=== PATIENT | male | born 1970 | race Caucasian/White ===

== ENCOUNTER 2016-10-29 21:21 | Inpatient (IN) | payer OTHER ==
[~2016-10-29] VITALS: Ht 182.9 cm; Wt 85.0 kg
[2016-10-29 21:26] VITALS: Ht 182.9 cm; Wt 85.0 kg
[2016-10-29] MEDS ORDERED: SOD CHLORIDE 0.9% 2,000 ML IV STA (21:29)
[2016-10-29] MEDS ORDERED: LACTATED RINGER'S 1,000 ML IV STA ×2 (21:29→22:17)
[2016-10-29 21:46] LABS: ADD SCAN DIFF NO
[2016-10-29 21:49] LABS: ABNORMAL IP MESSAGE 1; HEMOGLOBIN 12.9 g/dl (14.0-18.0); MEAN CORPUSCULAR HEMOGLOBIN 33.6 pg (29.0-33.0); MEAN CORPUSCULAR HGB CONC 32.3 g/dl (32.0-37.0); MEAN CORPUSCULAR VOLUME 104.2 fl (82.0-101.0); MEAN PLATELET VOLUME 10.7 fl (7.4-10.4); PLATELET COUNT 243 10^3/UL (140-415); RED BLOOD COUNT 3.84 10^6/ul (4.70-6.10); RED CELL DISTRIBUTION WIDTH 11.9 % (11.5-14.5); WHITE BLOOD COUNT 24.2 10^3/ul (4.8-10.8)
[2016-10-29 21:55] LABS: CHLORIDE 74 mmol/L (97-110); SODIUM 121 mmol/L (135-144)
[2016-10-29] MEDS ORDERED: INSULIN HUMAN REGULAR 100 UNIT in SOD CHLORIDE 0.9% 99 ML IV STA (21:56)
[2016-10-29 21:58] LABS: CREATININE 4.21 mg/dl (0.61-1.24)
[2016-10-29 21:59] LABS: BLOOD UREA NITROGEN 36 mg/dl (7-20); CALCIUM 8.2 mg/dl (8.4-10.2)
[2016-10-29 22:05] LABS: ANION GAP 50 (8-16)
[2016-10-29 22:08] LABS: GLUCOSE 1148 mg/dl (70-220)
[2016-10-29 22:09] LABS: CARBON DIOXIDE < 5 mmol/L (21-31); POTASSIUM 7.9 mmol/L (3.5-5.1)
[2016-10-29] MEDS ORDERED: CA CHLORIDE 10% 10 ML SYRINGE IV STA (22:09)
[2016-10-29 22:11] LABS: AADO2 Arterial 20.9 mmHg (7.0-24.0); Allen Test ACCEPTAB; Arterial Base Excess -26.1 mmol/L (-3.0-3); Arterial COHb 0.3 % (0.0-3.0); Arterial Fraction of Oxyhgb 96.7 % (93.0-99.0); Arterial HCO3 3.3 mmol/L (22.0-26.0); Arterial MetHb 0.4 % (0.0-1.5); Arterial Total Hemglobin 13.2 g/dl (12.0-18.0); MODE ROOM AIR
[2016-10-29] MEDS ORDERED: ALBUTEROL 0.5% (NEB) 2.5 MG/0.5 ML AMP INH STA (22:15)
[2016-10-29] MEDS ORDERED: SOD CHLORIDE 0.9% 1,000 ML IV STA ×2 (22:17)
[2016-10-29 22:37] LABS: LYMPHOCYTES # 1.2 10^3/ul (0.8-2.9); MONOCYTE # 3.4 10^3/ul (0.3-0.9); NEUTROPHIL # 18.9 10^3/ul (1.6-7.5)
--- NOTE | 2016-10-29 22:41 | ERA ---
ER Documentation Chief Complaint Date/Time DATE: 10/29/16 TIME: 22:40 Chief Complaint bib ra 90 c/o "diabetic symptoms" nonspecified, accu check "HI" per EMS HPI Patient is a 46-year-old male with diabetes who presents altered. The patient was brought in by ambulance. He uses insulin and his last use was 3 PM. He was started vomiting yesterday and has not eaten anything yesterday or today per his mom who is here with him. Please note the history and physical exam is limited secondary to the patient's mental status. ROS All systems reviewed and are negative except as per history of present illness. Allergies Allergies: Coded Allergies: No Known Allergy (Unverified , 10/29/16) PMhx/Soc Diabetes FmHx Unable to obtain Physical Exam Vitals Vital Signs Date Time Temp Pulse Resp B/P Pulse Ox O2 Delivery O2 Flow Rate FiO2 10/29/16 22:25 125 30 100 21 10/29/16 22:09 126 30 91/56 100 Room Air 10/29/16 21:26 98.0 132 21 99/61 100 Physical Exam Const: Kussmaul's respirations Head: Atraumatic Eyes: Normal Conjunctiva ENT: Dry mucous membranes Neck: Full range of motion..~ No meningismus. Resp: Kussmaul's respirations Cardio: Tachycardic rate Abd: Soft, non tender, non distended. Normal bowel sounds Skin: No petechiae or rashes Back: No midline or flank tenderness Ext: No cyanosis, or edema Neur: Awake but confused Result Diagram: 10/29/16213810/29/162138 Results 24 hrs Laboratory Tests Test 10/29/16 21:32 10/29/16 21:39 10/29/16 21:55 10/29/16 22:23 Bedside Glucose > 595mg/dL > 595mg/dL White Blood Count 24.210^3/ul Red Blood Count 3.8410^6/ul Hemoglobin 12.9g/dl Hematocrit 40.0% Mean Corpuscular Volume 104.2fl Mean Corpuscular Hemoglobin 33.6pg Mean Corpuscular Hemoglobin Concent 32.3g/dl Red Cell Distribution Width 11.9% Platelet Count 99800^3/UL Mean Platelet Volume 10.7fl Neutrophils % 78.0% Band Neutrophils % 3.0% Lymphocytes % 5.0% Monocytes % 14.0% Neutrophils # 18.910^3/ul Lymphocytes # 1.210^3/ul Monocytes # 3.410^3/ul Sodium Level 121mmol/L Potassium Level 7.9mmol/L Chloride Level 74mmol/L Carbon Dioxide Level < 5mmol/L Anion Gap 50 Blood Urea Nitrogen 36mg/dl Creatinine 4.21mg/dl Glucose Level 1148mg/dl Lactic Acid Level < 0.5mmol/L Calcium Level 8.2mg/dl Blood Gas Specimen Source Blood arterial Arterial Blood Date Drawn 10/29/2016 10:00:52 PM Arterial Blood pH (Temp corrected) 7.007 Arterial Blood pCO2 (Temp correct) 13.3mmhg Arterial Blood pO2 (Temp corrected) 112.9mmHG Arterial Blood HCO3 3.3mmol/L Arterial Blood Base Excess -26.1mmol/L Arterial Blood Oxygen Saturation 97.4mmHG Uziel Test ACCEPTAB Arterial Blood Gas Puncture Site Right Radial Arterial Blood Carboxyhemoglobin 0.3% Arterial Blood Methemoglobin 0.4% Blood Gas A-a O2 Differential 20.9mmHg Oxyhemoglobin Percent 96.7% Total Hemoglobin 13.2g/dl Blood Gas Temperature 37.0C Blood Gas Modality ROOM AIR FiO2 21.0% Blood Gas Critical Value Read Back shyla foster Blood Gas Notified Whom tiffanie eliazar Blood Gas Notified Time 10/29/2016 10:11:27 PM Current Medications Medications (Trade) Dose Ordered Sig/Coleen Route PRN Reason Start Time Stop Time Status Last Admin Dose Admin Sodium Chloride 2,000 ml @ 1,000 mls/hr Q2H STAT IV 10/29/16 21:29 10/29/16 23:28 10/29/16 21:45 Lactated Ringer's 1,000 ml @ 1,000 mls/hr Q1H STAT IV 10/29/16 21:29 10/29/16 22:28 DC 10/29/16 21:51 Insulin Human Regular/Sodium Chloride (Novolin-R/NS) 100 ml @ 8 mls/hr [id number] STAT IV 10/29/16 21:56 10/30/16 10:25 10/29/16 22:35 Calcium Chloride (Ca Chloride 10% Syg) 1,000 mg ONCE STAT IV 10/29/16 22:09 10/29/16 22:11 DC 10/29/16 22:13 Albuterol 15 mg 15 mg ONCE STAT INH 10/29/16 22:15 10/29/16 22:16 DC 10/29/16 22:24 Sodium Chloride 1,000 ml @ 1,000 mls/hr Q1H STAT IV 10/29/16 22:17 10/29/16 23:16 Sodium Chloride 1,000 ml @ 1,000 mls/hr Q1H STAT IV 10/29/16 22:17 10/29/16 23:16 Lactated Ringer's (Lr) 1,000 ml @ 1,000 mls/hr Q1H STAT IV 10/29/16 22:17 10/29/16 23:16 Procedures/MDM EKG read by me: Rate/Rhythm: Sinus tachycardia Intervals: Widening QRS Impression: Sinus tachycardia with widened QRS and peaked T waves consistent with hyperkalemia Patient is a 46-year-old male with diabetes who presents with Kussmaul's respirations. EKG showed a widening QRS and peak T waves and I was concerned about hyperkalemia from diabetic ketoacidosis. The patient was started on 2 L of normal saline 1 L of lactated Ringer's for fluid resuscitation. The patient had an elevated white blood cell count 24.2 which is likely from acute diabetic ketoacidosis and not true sepsis. Lactic acid is normal. The patient had an elevated sugar of 1148 as well as acute renal failure with a creatinine of 4.21. Doubt patient had a bicarbonate of less than 5 and a potassium of 7.9 showing acute hyperkalemia. The patient was started on insulin drip at 8 U/h. I ordered 2 more units of normal saline and 1 more unit of lactated Ringer's for a total of 6 L of fluid resuscitation. The patient is critically ill and will need admission to the intensive care unit. The patient has never been here before. I spoke with Dr. Potter from the panel team for admission to the ICU. The patient was given 1 g of calcium chloride to prevent cardiac arrest and was also given albuterol 15 mg for hyperkalemia. Critical Care: Time: 45 minutes excluding all billable procedures. Treatments/Evaluations: Close monitoring and treatment of unstable vital signs, cardiorespiratory, and neurologic status, while maintaining tight balance of fluid, respiratory, and cardiac interventions. Departure Diagnosis: Primary Impression: Hyperkalemia Additional Impressions: Kussmauls breathing Acidosis DKA (diabetic ketoacidoses) Qualified Code: E10.11 - Diabetic ketoacidosis with coma associated with type 1 diabetes mellitus Hyperglycemia Anemia Qualified Code: D64.9 - Anemia, unspecified type Acute renal failure Qualified Code: N17.9 - Acute renal failure, unspecified acute renal failure type Condition: Critical CARMEN RAMIREZ MD Oct 29, 2016 22:41
[2016-10-29] MEDS ORDERED: LORAZEPAM 2 MG INJ IV PRN (23:30)
[2016-10-29] MEDS ORDERED: ACETAMINOPHEN 650MG/20.3ML CUP PO PRN (23:30)
[2016-10-29] MEDS ORDERED: morphine 2 MG INJ IV PRN (23:30)
[2016-10-29] MEDS ORDERED: ONDANSETRON 4 MG INJ IV PRN (23:30)
[2016-10-29] MEDS ORDERED: DEXTROSE 50% 50 ML SYRINGE IV PRN ×2 (23:30)
[2016-10-30] VITALS (10 sets, daily range): BP systolic 98–122; BP diastolic 63–78; PULSE 110–120; RESP 12–28; TEMP 98.1
[2016-10-30 00:03] LABS: ADD UMIC YES; URINE BILIRUBIN (Dip) 2+ (NEGATIVE); URINE BLOOD (Dip) 2+ (NEGATIVE); URINE COLOR LT. YELLOW (YELLOW); URINE GLUCOSE (Dip) >=1000 % (NEGATIVE); URINE KETONES (Dip) 3+ (NEGATIVE); URINE LEUKOCYTE ESTERASE (Dip) NEGATIVE (NEGATIVE); URINE NITRITE (Dip) NEGATIVE (NEGATIVE); URINE TOTAL PROTEIN (Dip) 1+ (NEGATIVE); URINE UROBILINOGEN (Dip) 0.2 E.U./dL (0.1-1.0)
--- NOTE | 2016-10-30 00:07 | RADRPT ---
PROCEDURE: XR Chest. CLINICAL INDICATION: Chest pain. TECHNIQUE: Single frontal chest x-ray. COMPARISON: None. FINDINGS: The cardiomediastinal silhouette is unremarkable. The lungs are clear. No focal infiltrate is seen. There is no pleural effusion. There is no pneumothorax. The osseous structures are unremarkable. IMPRESSION: 1. No active disease. RPTAT: [facility]VK .Maximilian Calloway MD, MD Date Time Electronically viewed and signed by .Maximilian Calloway MD, on 10/30/2016 00:06 .K/
[2016-10-30 00:16] LABS: ICTOTEST POSITIVE (NEGATIVE)
[2016-10-30 00:19] LABS: BACTERIA,URINE FEW; MUCUS,URINE FEW; SQUAMOUS EPITHELIAL CELL,UR MODERATE
[2016-10-30] MEDS: ACCU-CHEK XX SCH ×11 (00:27→19:48)
--- NOTE | 2016-10-30 02:53 | HP ---
Date/Time of Note Date/Time of Note DATE: 10/30/16 TIME: 02:28 Assessment/Plan VTE Prophylaxis VTE Prophylaxis Intervention: heparin Assessment/Plan Assessment/Plan 1. Severe DKA - Cont Insulin with DKA protocol - IVF - Correct electrolytes as needed - Empiric abx pending cultures - Endocrine consult - Will check A1C in am 2. Presumed FRANCOIS - cont IVF - Obtain Renal u/s - check urine electrolytes - Nephrology consult 3. Severe AG metabolic Acidosis - see above 4. Electrolyte Abnormalities, including severe hyperK and HypoNa - Improved after IVF and insulin - Nephrology and Endocrine consult 5. SIRS, with no identifiable source of infection - empiric abx - f/u blood and urine culture results HPI/ROS Admit Date/Time Admit Date/Time Hx of Present Illness Patient is a 46-year-old male with hx of Type I diabetes who was BIBA for altered mentation. The patient is currently unable to give history and s such information is gathered from chart review and ER physician. Per his mother who was in ER, pt started vomiting yesterday and has not eaten anything yesterday or today. ER Course: He was tachycardic with rate as high as in 150s. Blood glucose 1148. reportedly, he last used insulin around 3PM. His K+ 7.9, HCO3 was < 5 with Ph of 7, AG 50, Na 121, Cl 74, BUN 36, Cr 4.3, WBC 24K. UA showed 3+ ketones and CXR with no active disease. Pt has been started on DKA protocol and is awaiting an ICU admission. . PMH/Family/Social Past Medical History Medical History: diabetes Past Surgical History Past Surgical Hx: no surgical history Social History Alcohol Use: none Smoking Status: Never smoker Drug Use: none Exam/Review of Systems Vital Signs Vitals Vital Signs Date Time Temp Pulse Resp B/P Pulse Ox O2 Delivery O2 Flow Rate FiO2 10/30/16 00:37 98.1 10/30/16 00:15 124 20 128/99 100 Nasal Cannula 2.0 10/29/16 22:25 21 Intake and Output 10/29/16 10/29/16 10/30/16 15:00 23:00 07:00 Intake Total 2000 ml 3000 ml Output Total 350 ml Balance 2000 ml 2650 ml Exam Constitutional: other (confused, lethargic) Head: atraumatic, normocephalic Eyes: PERRL Respiratory: clear to auscultation, other (breathing fast) Cardiovascular: other (tachycardic with regular rhythm) Gastrointestinal: non-tender, soft Extremities: normal pulses Labs Result Diagram: 10/29/16213810/29/162138 Medications Medications Current Medications Ondansetron HCl (Zofran Inj) 4 mg Q6H PRN IV NAUSEA AND/OR VOMITING; Start 06/06 at 23:30 Acetaminophen (Tylenol Liquid) 650 mg Q6H PRN PO PAIN LEVEL 1-3 OR FEVER; Start 10/29/16 at 23:30 Morphine Sulfate (morphine) 2 mg Q4H PRN IV PAIN LEVEL 7-10; Start 10/29/16 at 23:30 Lorazepam (Ativan) 1 mg Q4H PRN IV ANXIETY; Start 10/29/16 at 23:30 Pantoprazole (Protonix Iv) 40 mg DAILY@06 IV ; Start 10/30/16 at 06:00 Heparin Sodium (Porcine) (Heparin (5000 Units/0.5 ml)) 5,000 unit Q12 SC ; Start 10/30/16 at 09:00 Dextrose (D50w Syringe) 50 ml Q15M PRN IV For BS 50 or less; Start 10/29/16 at 23:30 Dextrose 25 ml 25 ml Q15M PRN IV BS between 50-70; Start 10/29/16 at 23:30 Insulin Human Regular/Sodium Chloride (Novolin-R/NS) 100 ml @ 0 mls/hr Q0M IV ; Start 10/29/16 at 23:21; Status UNV Diagnostic Test (Pha) 1 ea 1 ea Q1H XX Last administered on 10/30/16t 00:27; Admin Dose 1 EA; Start 10/29/16 at 23:30 Potassium Chloride/Sodium Chloride (NS-KCl 20 Meq) 1,000 ml @ 150 mls/hr Q6H40M IV ; Start 10/29/16 at 23:30 KENNETH STISNON MD Oct 30, 2016 02:39
[2016-10-30 02:57] LABS: CALCIUM 7.9 mg/dl (8.4-10.2); CREATININE 2.83 mg/dl (0.61-1.24); POTASSIUM 5.6 mmol/L (3.5-5.1)
[2016-10-30] MEDS ORDERED: LEVOFLOXACIN 500MG/D5W (PMX) 100 ML IVPB SCH (03:00)
[2016-10-30] MEDS ORDERED: SOD CHLORIDE 0.9% 1,000 ML IV SCH (03:30)
[2016-10-30 04:40] LABS: POTASSIUM 5.2 mmol/L (3.5-5.1)
[2016-10-30 04:42] LABS: CREATININE 2.59 mg/dl (0.61-1.24)
[2016-10-30 04:43] LABS: CALCIUM 8.5 mg/dl (8.4-10.2)
[2016-10-30 05:31] LABS: ADD SCAN DIFF NO
[2016-10-30 05:44] LABS: BASOPHILS % 0.1 % (0.0-2.0); HEMATOCRIT 35.7 % (42.0-52.0); HEMOGLOBIN 12.3 g/dl (14.0-18.0); LYMPHOCYTES # 0.9 10^3/ul (0.8-2.9); LYMPHOCYTES % 7.4 % (15.0-51.0); MEAN CORPUSCULAR HEMOGLOBIN 32.6 pg (29.0-33.0); MEAN CORPUSCULAR HGB CONC 34.5 g/dl (32.0-37.0); MEAN CORPUSCULAR VOLUME 94.7 fl (82.0-101.0); MEAN PLATELET VOLUME 10.2 fl (7.4-10.4); MONOCYTE # 1.1 10^3/ul (0.3-0.9); MONOCYTES % 8.9 % (0.0-11.0); NEUTROPHIL # 10.1 10^3/ul (1.6-7.5); NEUTROPHILS % 82.3 % (39.0-77.0); PLATELET COUNT 145 10^3/UL (140-415); RED BLOOD COUNT 3.77 10^6/ul (4.70-6.10); RED CELL DISTRIBUTION WIDTH 11.6 % (11.5-14.5); WHITE BLOOD COUNT 12.3 10^3/ul (4.8-10.8)
[2016-10-30 05:48] LABS: ALBUMIN 3.7 g/dl (3.3-4.9)
[2016-10-30 05:49] LABS: POTASSIUM 4.9 mmol/L (3.5-5.1)
[2016-10-30 05:51] LABS: ALBUMIN/GLOBULIN RATIO 1.48; BILIRUBIN,INDIRECT 0.2 mg/dl (0-1.1); BILIRUBIN,TOTAL 0.2 mg/dl (0.2-1.3); CREATININE 2.35 mg/dl (0.61-1.24); TOTAL PROTEIN 6.2 g/dl (6.1-8.1)
[2016-10-30 05:52] LABS: CALCIUM 8.7 mg/dl (8.4-10.2)
[2016-10-30] MEDS: PANTOPRAZOLE 40 MG INJ IV SCH (06:53)
[2016-10-30] MEDS: INSULIN HUMAN REGULAR 100 UNIT in SOD CHLORIDE 0.9% 99 ML IV SCH ×2 (06:53→12:21)
[2016-10-30] MEDS: NS + KCL 20 MEQ 1,000 ML IV SCH ×2 (06:54→08:02)
[2016-10-30] MEDS: HEPARIN 5,000 UNIT/0.5 ML VIAL SC SCH ×2 (09:07→20:49)
[2016-10-30] MEDS: DEXTROSE 5%-0.45% NACL 1,000 ML IV SCH ×2 (11:38→17:22)
[2016-10-30 14:41] LABS: CALCIUM 8.8 mg/dl (8.4-10.2); CREATININE 1.05 mg/dl (0.61-1.24); POTASSIUM 3.6 mmol/L (3.5-5.1)
[2016-10-30 15:18] LABS: PHOSPHORUS 1.7 mg/dl (2.5-4.9)
[2016-10-30] MEDS ORDERED: GLUCOSE GEL 15 GRAM TUBE PO PRN ×2 (16:30)
[2016-10-30] MEDS ORDERED: DEXTROSE 50% 50 ML SYRINGE IV PRN ×2 (16:30)
[2016-10-30] MEDS ORDERED: GLUCAGON 1 MG INJ IM PRN (16:30)
[2016-10-30] MEDS ORDERED: GLUCOSE GEL 15 GRAM TUBE BUCCAL PRN (16:30)
[2016-10-30] MEDS: INSULIN ASPART [NOVOLOG] 3 ML PEN SC SCH ×2 (18:00→20:50)
[2016-10-30] MEDS ORDERED: INSULIN ASPART [NOVOLOG] 3 ML PEN SC SCH (18:00)
[2016-10-30] MEDS: SOD CHLORIDE 0.9% 1,000 ML IV SCH (18:13)
[2016-10-30] MEDS ORDERED: INSULIN GLARGINE [LANtus] 3 ML PEN SC SCH (19:00)
[2016-10-31] MEDS ORDERED: ACCU-CHEK XX SCH ×2 (02:00)
[2016-10-31] MEDS ORDERED: LEVOFLOXACIN 250MG/D5W (PMX) 50 ML IVPB SCH (03:00)
[2016-10-31] MEDS: PANTOPRAZOLE 40 MG INJ IV SCH (05:34)
[2016-10-31] MEDS: SOD CHLORIDE 0.9% 1,000 ML IV SCH ×2 (06:29→08:28)
[2016-10-31 07:38] VITALS: BP 108/58; RESP 16
[2016-10-31 08:07] LABS: ADD SCAN DIFF NO
[2016-10-31 08:15] LABS: EOSINOPHILS % 0.1 % (0.0-7.0); HEMATOCRIT 31.3 % (42.0-52.0); HEMOGLOBIN 11.3 g/dl (14.0-18.0); LYMPHOCYTES # 1.4 10^3/ul (0.8-2.9); LYMPHOCYTES % 20.1 % (15.0-51.0); MEAN CORPUSCULAR HEMOGLOBIN 32.9 pg (29.0-33.0); MEAN CORPUSCULAR HGB CONC 36.1 g/dl (32.0-37.0); MEAN CORPUSCULAR VOLUME 91.3 fl (82.0-101.0); MEAN PLATELET VOLUME 10.3 fl (7.4-10.4); MONOCYTE # 0.6 10^3/ul (0.3-0.9); MONOCYTES % 8.1 % (0.0-11.0); NEUTROPHILS % 71.3 % (39.0-77.0); PLATELET COUNT 118 10^3/UL (140-415); RED BLOOD COUNT 3.43 10^6/ul (4.70-6.10); RED CELL DISTRIBUTION WIDTH 11.7 % (11.5-14.5); WHITE BLOOD COUNT 7.1 10^3/ul (4.8-10.8)
[2016-10-31] MEDS: INSULIN ASPART [NOVOLOG] 3 ML PEN SC SCH ×3 (08:15→17:29)
[2016-10-31] MEDS: HEPARIN 5,000 UNIT/0.5 ML VIAL SC SCH (08:26)
--- NOTE | 2016-10-31 08:31 | PN ---
DATE: 10/30/2016 SUBJECTIVE: The patient is still lethargic, still on DKA protocol. Sugars have improved but still on fluids. OBJECTIVE: VITAL SIGNS: Heart rate still in the 110 to 120 range, respirations 12 to 20, blood pressure is sta ble, afebrile. GENERAL: The patient is lying in bed, lethargic, in no acute distress. HEENT: Pupils equal, round, reactive to light. Extraocular muscles intact. NECK: Supple, no thyromegaly. LUNGS: Clear to auscultation bilaterally. CARDIOVASCULAR: S1, S2 heard. No rubs or gallops. ABDOMEN: Soft, nontender, nondistended. Normal bowel sounds. No rebound or guarding. MUSCULOSKELETAL: No lower extremity edema bilaterally. NEUROLOGIC: No focal deficits. LABORATORY DATA: WBC 12.3, hemoglobin 12.3, hematocrit 35.7, platelets 145, sodium 130, potassium 4 .9, chloride 93, CO2 13, BUN 32, creatinine 2.35, glucose 514. LFTs are normal, anion gap is still 32 that was this morning. ASSESSMENT AND PLAN: A 46-year-old male presenting with lethargy and altered mental status secondar y to diabetic ketoacidosis and renal insufficiency. 1. Lethargy again secondary to most likely DKA. His sugars have improved. We are going to continu e to follow DKA protocol eventually switched him to subQ insulin when his gap is closed and his suga rs are stable. Continue aggressive IV fluid hydration and electrolyte repletion as well. A1c is 12 .1. 2. Diabetes type 1. See #1. Continue aggressive treatment of DKA per DA protocol including IV flu ids and IV insulin. Consider staff development educator as well consult. 3. GI prophylaxis. PPI. 4. Deep venous thrombosis prophylaxis. Heparin subcutaneously. Dictated By: MARISSA OLIVA Conf#: [id number] DID#: [id number]
[2016-10-31 08:40] LABS: MAGNESIUM 2.2 mg/dl (1.7-2.5); PHOSPHORUS 2.4 mg/dl (2.5-4.9)
[2016-10-31 08:44] LABS: POTASSIUM 3.1 mmol/L (3.5-5.1)
[2016-10-31 08:46] LABS: CREATININE 0.65 mg/dl (0.61-1.24)
[2016-10-31 08:47] LABS: CALCIUM 8.9 mg/dl (8.4-10.2)
--- NOTE | 2016-10-31 09:11 | PDOCDIS ---
Discharge Instructions CONDITION Patient Condition: Stable HOME CARE INSTRUCTIONS: Special Diet: carb controlled diet ACTIVITY: Activity Restrictions: Slowly Increase Activity FOLLOW UP/APPOINTMENTS Appointments Please take your medications as prescribed, and see your doctor in the clinic in 1 week. MARISSA MAGALLANES Oct 31, 2016 09:11
[2016-10-31] MEDS ORDERED: LANT3I SC (09:12)
[2016-10-31] MEDS ORDERED: METF850T PO (09:12)
--- NOTE | 2016-10-31 09:35 | DS ---
DATE OF ADMISSION: 10/30/2016 DATE OF DISCHARGE: 10/31/2016 A 46-year-old male, originally admitted on 10/30/2016, being discharged home on 10/31/2016. HOSPITAL COURSE: The patient came in with altered mental status. He was found with very elevated b lood sugars and found to be in diabetic ketoacidosis. He was given aggressive IV fluid hydration an d IV insulin. He was found with a hemoglobin A1c of 12.1. Apparently, he had not been taking his i nsulin medicines at home for the last 1 or 2 days and admits to drinking a lot of orange juice at [facility] [place]. In any event, the patient was started on DKA protocol. Again, after some IV fluids and IV ins ulin his sugars corrected. He had some low phosphorus and potassium levels that were made replete a s well. He received education on better diet control. He was able to ambulate and tolerate a p.o. diet. His sugars stabilized. His gap closed and because his numbers have improved and he has been getting education about improvement in his home food regimen, he will be discharged home today in im proved condition. He will be sent with Lantus 35 units subq daily, Metformin 850 mg b.i.d., which xavier caruso already takes at home. He can follow up with his primary care doctor in clinic in the next 1 to 2 weeks. FINAL DIAGNOSES: 1. Altered mental status and weakness secondary to diabetic ketoacidosis, with a hemoglobin A1c of 12.1, status post treatment on DKA protocol, with sugars improved. 2. History of type 1 diabetes. 3. Acute renal insufficiency, resolving. 4. Anion gap metabolic acidosis secondary to #1. Now resolved. Time spent discharging the patient was 45 minutes. Dictated By: MARISSA OLIVA Conf#: [id number] DID#: [id number]
[2016-10-31] MEDS ORDERED: POTASSIUM PHOSPHATE 40 MEQ in SOD CHLORIDE 0.9% 250 ML IVPB ONE (10:30)
[2016-10-31] MEDS: ACCU-CHEK XX SCH ×3 (10:34→19:51)
[2016-10-31 11:13] LABS: BARBITURATES Negative (NEGATIVE); BENZODIAZEPINES Negative (NEGATIVE); CANNABINOIDS Negative (NEGATIVE); COCAINE Negative (NEGATIVE); OPIATES Negative (NEGATIVE)
[2016-10-31] MEDS ORDERED: INSULIN GLARGINE [LANtus] 3 ML PEN SC ONE (15:00)
[2016-10-31] MEDS ORDERED: INSULIN ASPART [NOVOLOG] 3 ML PEN SC SCH (18:00)
[2016-10-31 19:52] VITALS: BP 110/70; RESP 20
[2016-10-31] MEDS ORDERED: INSULIN GLARGINE [LANtus] 3 ML PEN SC SCH (20:00)
[2016-11-01 09:02] LABS: POTASSIUM 6.6 mmol/L (3.5-5.1)
[2016-11-01 09:03] LABS: CREATININE 3.39 mg/dl (0.61-1.24)
== END 2016-10-31 21:05 | disposition home or self-care (01) | DRG 638 ==
LOC: E/R 21:21 → MS2 10-30 14:51
PROVIDERS: ADMIT Internal Medicine; ATTEND Internal Medicine
DX: E10.10 Type 1 diabetes mellitus with ketoacidosis without coma (principal); E87.2 Acidosis; E87.5 Hyperkalemia; N28.9 Disorder of kidney and ureter, unspecified; R53.83 Other fatigue
CPT/HCPCS: 36415; 36600; 71010; 80048; 80053; 80306; 80307; 81001; 81003; 82803; 82962; 83036; 83605; 83735; 84100; 84484; 85025; 93005; 94664; 96361; 96372; 96374; 96375; 96376; C9113; J1644; J1815; J1956; J3480; J7030; J7042; J7050; J7120